=== PATIENT | female | born 1985 | race African-American/Black ===

== ENCOUNTER 2016-07-27 16:55 | Emergency (ER) | payer SELFPAY ==
[2016-07-27] MEDS ORDERED: ALBUTEROL SULFATE 0.083% NEB 2.5 MG/3 ML AMPUL NEB ONE (17:34)
--- NOTE | 2016-07-27 18:46 | ER Document Report ---
HPI - HPI Patient complains to provider of: cough Pain Level: Denies Context: 31-year-old female presented with department complaining of cough for 1 week. She admits that is productive, yellow/clear phlegm. Otherwise she denies any fever, chills, difficulty breathing, shortness of breath, nasal drainage, sinus pressure and congestion. Smokes half a pack a day - REPRODUCTIVE Reproductive: DENIES: : - DERM Skin Color: Normal Past Medical History - Social History Smoking Status: Current Every Day Smoker Family History: Reviewed & Not Pertinent Patient has suicidal ideation: No Patient has homicidal ideation: No Pulmonary Medical History: Reports: Hx Bronchitis Renal/ Medical History: Denies: Hx Peritoneal Dialysis - Immunizations Hx Diphtheria, Pertussis, Tetanus Vaccination: Yes Vertical Provider Document - CONSTITUTIONAL Agree With Documented VS: Yes Exam Limitations: No Limitations General Appearance: WD/WN, No Apparent Distress Notes: PHYSICAL EXAM GENERAL: Alert, interacts well. HEAD: Normocephalic, atraumatic. EYES: Pupils equal, round, and reactive to light. Extraocular movements intact. ENT: Oral mucosa moist, tongue midline. NECK: Full range of motion. Supple. Trachea midline. LUNGS: Clear to auscultation bilaterally, no wheezes, rales, or rhonchi. No respiratory distress. HEART: Regular rate and rhythm. No murmurs, gallops, or rubs. EXTREMITIES: Moves all 4 extremities spontaneously. No edema, radial and dorsalis pedis pulses 2/4 bilaterally. No cyanosis. NEUROLOGICAL: Alert and oriented x4. Normal speech. PSYCH: Normal affect, normal mood. SKIN: Warm, dry, normal turgor. No rashes or lesions noted. - INFECTION CONTROL TRAVEL OUTSIDE OF THE [place] IN LAST 30 DAYS: No - RESPIRATORY O2 Sat by Pulse Oximetry: 98 Course - Re-evaluation Re-evalutation: 07/27/16 19:41 Patient is a 31-year-old female daily stable, no acute distress and afebrile. No evidence of acute cardiopulmonary process noted on x-ray. Patient states that her cough feels better after albuterol treatment. We will discharge home and can follow-up with primary care as needed. Patient educated on quitting smoking - Vital Signs Vital signs: Temp Pulse Resp BP Pulse Ox 98.6 F 92 16 127/72 H 98 07/27/16 16:59 07/27/16 16:59 07/27/16 16:59 07/27/16 16:59 07/27/16 16:59 - Diagnostic Test Radiology reviewed: Image reviewed, Reports reviewed Discharge - Discharge Clinical Impression: Cough Condition: Good Disposition: HOME, SELF-CARE Instructions: Upper Respiratory Illness ([facility]) Prescriptions: Albuterol Sulfate [Proair HFA Inhalation Aerosol 8.5 gm MDI] 2 puff IH Q4H PRN # 1 mdi PRN Reason: Forms: Return to Work Referrals: EMMANUEL JAMES MD [Primary Care Provider] - Follow up as needed
[2016-07-27 18:57] VITALS: BP 117/71
== END 2016-07-27 18:55 | disposition home or self-care (01) ==
LOC: ER 16:55
DX: R05 Cough (principal); F17.200 Nicotine dependence, unspecified, uncomplicated
CPT/HCPCS: 71020; 94640; 99283

== ENCOUNTER 2016-09-06 19:15 | Emergency (ER) | payer SELFPAY ==
[2016-09-06 19:30] VITALS: BP 116/89
--- NOTE | 2016-09-06 20:22 | ER Document Report ---
ED Skin Rash/Insect Bite/Abscs - General Chief Complaint: Insect Bite Stated Complaint: POSSIBLE INSECT BITE Time Seen by Provider: 09/06/16 20:08 Mode of Arrival: Ambulatory Information source: Patient Notes: 31-year-old female presents to ED for pain to her right calf. She states she was bit by a horse bite yesterday and the swelling has continued to increase redness painful. Patient took a Benadryl yesterday with no relief. [place] know what a request by with do until she was bit in the hand but she took Benadryl one time and it went down this time it did not go straight down. She became concerned so she came to the emergency room. TRAVEL OUTSIDE OF THE [place] IN LAST 30 DAYS: No - HPI Patient complains to provider of: Insect bite Onset: Yesterday Onset/Duration: Gradual Quality of pain: Pressure Severity: Moderate Pain Level: 3 Skin Character: Erythema, Swelling, Other Quality of rash: Itchy, Painful Identify cause: Yes - Insect bite Exacerbated by: Denies Relieved by: Denies Similar symptoms previously: Yes Recently seen / treated by doctor: Yes - Related Data Allergies/Adverse Reactions: No Known Allergies Allergy (Verified 07/27/16 17:01) Past Medical History - General Information source: Patient - Social History Smoking Status: Current Every Day Smoker Cigarette use (# per day): Yes - Half a pack a day Chew tobacco use (# tins/day): No Smoking Education Provided: Yes - Less than 2 minutes Frequency of alcohol use: Social - 2 beer 3-4 times a week Drug Abuse: None Occupation: Restaurant Lives with: Spouse/Significant other Family History: CVA. denies: Arthritis, CAD, COPD, DM, Hyperlipidemia, Hypertension, Malignancy, Thyroid Disfunction Patient has suicidal ideation: No Patient has homicidal ideation: No - Past Medical History Cardiac Medical History: Reports: None Pulmonary Medical History: Reports: Hx Bronchitis EENT Medical History: Reports: None Neurological Medical History: Reports: None Endocrine Medical History: Reports: None Renal/ Medical History: Reports: None Malignancy Medical History: Reports: None GI Medical History: Reports: None Musculoskeltal Medical History: Reports None Skin Medical History: Reports Hx Eczema Psychiatric Medical History: Reports: Hx Depression Traumatic Medical History: Reports: None Infectious Medical History: Reports: None Past Surgical History: Reports: Hx Oral Surgery - [place] teeth - Immunizations Hx Diphtheria, Pertussis, Tetanus Vaccination: Yes Review of Systems - Review of Systems Constitutional: No symptoms reported EENT: No symptoms reported Cardiovascular: No symptoms reported Respiratory: No symptoms reported Gastrointestinal: No symptoms reported Genitourinary: No symptoms reported Female Genitourinary: No symptoms reported Musculoskeletal: No symptoms reported Skin: Other - Insect bite with redness and swelling to the right calf Hematologic/Lymphatic: No symptoms reported Neurological/Psychological: No symptoms reported -: Yes All other systems reviewed and negative Physical Exam - Vital signs Vitals: Temp Pulse Resp BP Pulse Ox 98.4 F 100 18 116/89 H 98 09/06/16 19:29 09/06/16 19:29 09/06/16 19:29 09/06/16 19:29 09/06/16 19:29 Interpretation: Normal - General General appearance: Appears well, Alert - HEENT Head: Normocephalic, Atraumatic Eyes: Normal Pupils: PERRL - Respiratory Respiratory status: No respiratory distress Chest status: Nontender Breath sounds: Normal Chest palpation: Normal - Cardiovascular Rhythm: Regular Heart sounds: Normal auscultation Murmur: No - Abdominal Inspection: Normal Distension: No distension Bowel sounds: Normal Tenderness: Nontender Organomegaly: No organomegaly - Back Back: Normal, Nontender - Extremities General upper extremity: Normal inspection, Nontender, Normal color, Normal ROM , Normal temperature General lower extremity: Normal color, Normal ROM, Normal temperature, Normal weight bearing. No: Brittaney's sign Calf: Other - Insect bite with redness and swelling to the right calf - Neurological Neuro grossly intact: Yes Cognition: Normal Orientation: AAOx4 Ross Coma Scale Eye Opening: Spontaneous Ross Coma Scale Verbal: Oriented [place] Coma Scale Motor: Obeys Commands Ross Coma Scale Total: 15 Speech: Normal Motor strength normal: LUE, RUE, LLE, RLE Sensory: Normal - Psychological Associated symptoms: Normal affect, Normal mood - Skin Skin Temperature: Warm Skin Moisture: Dry Skin Color: Normal Skin irregularity: Erythema Location of irregularity: Extremities - Right calf insect bite redness and swelling Irregularity with: Swelling Course - Vital Signs Vital signs: Temp Pulse Resp BP Pulse Ox 98.4 F 100 18 116/89 H 98 09/06/16 19:29 09/06/16 19:29 09/06/16 19:29 09/06/16 19:29 09/06/16 19:29 Discharge - Discharge Clinical Impression: Insect bite of lower leg with local reaction Qualifiers: Encounter type: initial encounter Laterality: right Qualified Code(s): S80.861A - Insect bite (nonvenomous), right lower leg, initial encounter Condition: Stable Disposition: HOME, SELF-CARE Instructions: Family Physicians / Practices Additional Instructions: Insect Bites You have been bitten by an insect. These bites can cause two types of swelling: an initial swelling due to insect saliva or injected poison, and a late reaction due to your body's allergic reaction. This initial local reaction may be uncomfortable but is not dangerous. Often there's an itchy "hive" at the bite location. This is treated with antihistamines, cold compresses, and resting the affected body part. The later reaction often develops about the second day. The entire area becomes very swollen, red, itchy, and tender. This is an allergic reaction. Your body is attacking the leftover insect saliva or venom. This type of allergy is unpleasant, but not dangerous. We treat this swelling with cortisone -type medicine. Sometimes we use antibiotics if we're worried about infection. Antihistamines help with the itch. If you develop a fever, chills, a red streak, or swollen glands in the area of the bite, infection may be starting. Return at once. Diphenhydramine The use of diphenhydramine (Benadryl) has been recommended to control allergic symptoms. The 25 mg strength is available over- the-counter, as well as the elixir. This antihistamine is used for many symptoms. It's useful for itching, watering eyes and nose, allergic swelling, hives, and insect stings. The medication can be repeated four times daily. Age Elixir (12.5 mg/tsp) 25 mg pill 1 yr 1/4 tsp 2-3 yr 1/2 tsp 4-8 yr 1 tsp 9-14 yr 2 tsp one tab adult 1-2 tabs Antihistamines may cause drowsiness, especially with the first dose. Do not operate machinery or drive while under the effects of the medication. Do not combine the medication with alcohol, or with any other medication without talking to your doctor. Ice Packs Apply ice packs frequently against the painful area. Many different schedules are recommended, such as "20 minutes on, 20 minutes off" or "one hour ice, two hours rest." If you need to work, you may need to go longer between ice treatments. You should plan to have the area ice packed AT LEAST one fourth of the time. The ice should be applied over the wrap, tape, or splint, or over a layer of cloth -- not directly against the skin. Some ice bags have a built-in cloth and can be put directly on the skin. FOLLOW-UP CARE: If you have been referred to a physician for follow-up care, call the physician s office for an appointment as you were instructed or within the next two days. If you experience worsening or a significant change in your symptoms, notify the physician immediately or return to the Emergency Department at any time for re-evaluation. Forms: Elevated Blood Pressure, Smoking Cessation Education, Return to Work
[2016-09-06] MEDS ORDERED: DIPHENHYDRAMINE HCL 50 MG CAPSULE PO ONE (20:26)
[2016-09-06] MEDS ORDERED: IBUPROFEN 800 MG TABLET PO ONE (20:26)
== END 2016-09-06 20:40 | disposition home or self-care (01) ==
LOC: ER 19:15
DX: S80.861A Insect bite (nonvenomous), right lower leg, initial encounter (principal); F17.210 Nicotine dependence, cigarettes, uncomplicated; Z71.6 Tobacco abuse counseling
CPT/HCPCS: 99281

== ENCOUNTER 2017-08-25 09:28 | Emergency (ER) | payer SELFPAY ==
[2017-08-25 09:34] VITALS: BP 130/88
--- NOTE | 2017-08-25 10:17 | ER Document Report ---
ED Skin Rash/Insect Bite/Abscs - General Mode of Arrival: Ambulatory Information source: Patient TRAVEL OUTSIDE OF THE [place] IN LAST 30 DAYS: No - General Chief Complaint: Skin Problem Stated Complaint: POSSIBLE BUG BITE Time Seen by Provider: 08/25/17 10:12 Notes: Patient is a 32-year-old female who presents to the emergency today with left elbow pain and swelling. Patient states she first noticed this area yesterday around noon. Patient states initially the area was very small in size however it has since spread to a large area over her left elbow. Patient states she feels like she was bitten by something however she did not see or feel anything bite her. Patient complains of slight pain with full flexion. Patient denies the area itching, fevers, or chills. (ROSALINA BARGER) - Related Data Allergies/Adverse Reactions: No Known Allergies Allergy (Verified 08/25/17 09:33) Past Medical History - General Information source: Patient - Social History Smoking Status: Current Every Day Smoker Cigarette use (# per day): Yes Chew tobacco use (# tins/day): No Frequency of alcohol use: Social Drug Abuse: None Lives with: Family Family History: CVA Patient has suicidal ideation: No Patient has homicidal ideation: No Pulmonary Medical History: Reports: Hx Bronchitis Skin Medical History: Reports Hx Eczema Psychiatric Medical History: Reports: Hx Depression Past Surgical History: Reports: Hx Oral Surgery - [place] teeth - Immunizations Hx Diphtheria, Pertussis, Tetanus Vaccination: Yes Review of Systems - Review of Systems Constitutional: denies: Chills, Fever EENT: No symptoms reported Cardiovascular: No symptoms reported Respiratory: No symptoms reported Gastrointestinal: No symptoms reported Genitourinary: No symptoms reported Female Genitourinary: No symptoms reported Musculoskeletal: See HPI, Joint pain - left elbow Skin: No symptoms reported Hematologic/Lymphatic: No symptoms reported Neurological/Psychological: No symptoms reported -: Yes All other systems reviewed and negative Physical Exam - Vital signs Vitals: Temp Pulse Resp BP Pulse Ox 99.1 F 93 12 130/88 H 100 08/25/17 09:33 08/25/17 09:33 08/25/17 09:33 08/25/17 09:33 08/25/17 09:33 - Notes Notes: PHYSICAL EXAM GENERAL: Alert, interacts well. No acute distress. HEAD: Normocephalic, atraumatic. EYES: Pupils equal, round, and reactive to light. Extraocular movements intact. ENT: Oral mucosa moist, tongue midline. NECK: Full range of motion. Supple. Trachea midline. LUNGS: No respiratory distress. HEART: Regular rate and rhythm. No murmurs, gallops, or rubs. Brisk capillary refill distally. ABDOMEN: Non-distended. EXTREMITIES: Moves all 4 extremities spontaneously. Able to fully flex and extend left elbow with slight pain at extreme flexion. See skin exam. NEUROLOGICAL: Alert and oriented x3. Normal speech. Sensation intact distally. PSYCH: Normal affect, normal mood. SKIN: Warm, dry, normal turgor. Large patch of erythema 10cm x 17cm just superior to the olecranon. Area is slightly indurated and hot to the touch without fluctuance. (ROSALINA BARGER) Course - Re-evaluation Re-evalutation: 08/25/17 10:17 Consistent with bug bite that then sparked cellulitis, no evidence of necrotizing fasciitis or abscess, no evidence of infection in the muscle. Treat with Keflex and discharged home. (JOHNSON SANDHU) - Vital Signs Vital signs: Temp Pulse Resp BP Pulse Ox 99.1 F 93 12 130/88 H 100 08/25/17 09:33 08/25/17 09:33 08/25/17 09:33 08/25/17 09:33 08/25/17 09:33 Discharge - Discharge Clinical Impression: Left arm cellulitis Condition: Stable Disposition: HOME, SELF-CARE Instructions: Cellulitis ([facility]) Prescriptions: Cephalexin Monohydrate [Keflex 500 mg Capsule] 1,000 mg PO BID 7 Days capsule Forms: Return to Work Referrals: EMMANUEL JAMES MD [ACTIVE STAFF] - Follow up in 3-5 days Scribe Attestation: 08/25/17 15:36 I personally performed the services described in the documentation, reviewed and edited the documentation which was dictated to the scribe in my presence, and it accurately records my words and actions. (JOHNSON SANDHU) Scribe Documentation - Scribe Written by Scribe:: Tee Cooper, 08/25/2017 1123 acting as scribe for :: Alysa
== END 2017-08-25 10:32 | disposition home or self-care (01) ==
LOC: ER 09:28
DX: L03.114 Cellulitis of left upper limb (principal); M25.522 Pain in left elbow; F17.210 Nicotine dependence, cigarettes, uncomplicated
CPT/HCPCS: 99283

== ENCOUNTER 2018-09-21 07:46 | Emergency (ER) | payer SELFPAY ==
[2018-09-21] MEDS ORDERED: IBUPROFEN 800 MG TABLET PO ONE (09:42)
[2018-09-21] MEDS ORDERED: CEPHALEXIN 500 MG CAPSULE PO ONE (09:42)
[2018-09-21] MEDS ORDERED: DIPHENHYDRAMINE HCL 50 MG CAPSULE PO ONE (09:42)
--- NOTE | 2018-09-21 09:48 | ER Document Report ---
HPI - HPI Patient complains to provider of: BL hand swelling Time Seen by Provider: 09/21/18 09:28 Pain Level: 3 Context: Patient is an otherwise healthy 37-year-old female presents the emergency department for bilateral hand swelling. Patient states around 1600 hrs. yesterday she got bit by 3 different horse flies. Patient states she saw the horse flies and felt them biting her. States initially her left hand was very swollen. States she took Benadryl last night, woke up this morning and now her right hand is also swollen. Patient states she did take Tylenol around 500am. Patient states she has had multiple insect bites recently and states last time she had an insect bite on her left elbow it "got really infected." Patient is concerned for infection which is why she presents to the emergency room. Patient denies any medical problems, denies any daily medications, denies any allergies, states she is up-to-date on her tetanus immunization. - REPRODUCTIVE Reproductive: DENIES: : Past Medical History - General Information source: Patient - Social History Smoking Status: Unknown if Ever Smoked Family History: CVA Pulmonary Medical History: Reports: Hx Bronchitis Renal/ Medical History: Denies: Hx Peritoneal Dialysis Skin Medical History: Reports Hx Eczema Psychiatric Medical History: Reports: Hx Depression Past Surgical History: Reports: Hx Oral Surgery - [place] teeth - Immunizations Hx Diphtheria, Pertussis, Tetanus Vaccination: Yes Vertical Provider Document - CONSTITUTIONAL Agree With Documented VS: Yes Notes: GENERAL: Alert, interacts well. No acute distress. HEAD: Normocephalic, atraumatic. EYES: Pupils equal, round, and reactive to light. Extraocular movements intact. ENT: Oral mucosa moist, tongue midline. NECK: Full range of motion. Supple. Trachea midline. LUNGS: Clear to auscultation bilaterally, no wheezes, rales, or rhonchi. No respiratory distress. HEART: Regular rate and rhythm. No murmur ABDOMEN: Soft, non-tender. Non-distended. Bowel sounds present in all 4 quadrants. EXTREMITIES: Moves all 4 extremities spontaneously. normal radial and dorsalis pedis pulses bilaterally. No cyanosis. Full range of motion bilateral wrists, full range of motion all 10 fingers despite swelling. BACK: no cervical, thoracic, lumbar midline tenderness. No saddle anesthesia, normal distal neurovascular exam. NEUROLOGICAL: Alert and oriented x3. Normal speech. cranial nerves II through XII grossly intact PSYCH: Normal affect, normal mood. SKIN: Warm, dry, normal turgor. Swelling noted to the posterior aspect of bilateral hands, multiple small scratches with 2 urticarial lesions noted medial posterior aspect right hand. - INFECTION CONTROL TRAVEL OUTSIDE OF THE [place] IN LAST 30 DAYS: No Course - Re-evaluation Re-evalutation: 09/21/18 09:46 Discussed with patient this is likely an allergen with a potential underlying bacterial infection. Discussed with patient need to take Benadryl every 6 hours and also take antibiotics as prescribed. Discussed close follow-up with primary care provider with close return precautions if in 48 hours the antibiotics and Benadryl have not helped with generalized swelling. Based on patient's physical exam with very slight erythema noted I will treat with Keflex. Patient stable for discharge At this time will discharge with return precautions and follow-up recommendations. Verbal discharge instructions given a the bedside and opportunity for questions given. Medication warnings reviewed. Patient is in agreement with this plan and has verbalized understanding of return precautions and the need for primary care follow-up in the next 24-72 hours. This medical record was dictated with voice recognizing software. There may be grammatical, syntax errors that are unintended. - Vital Signs Vital signs: Temp Pulse Resp BP Pulse Ox 98.0 F 93 16 129/86 H 98 09/21/18 07:50 09/21/18 07:50 09/21/18 07:50 09/21/18 07:50 09/21/18 07:50 Discharge - Discharge Clinical Impression: Allergic reaction Qualifiers: Encounter type: initial encounter Qualified Code(s): T78.40XA - Allergy, unspecified, initial encounter Cellulitis Qualifiers: Site of cellulitis: extremity Site of cellulitis of extremity: upper extremity Laterality: unspecified laterality Qualified Code(s): L03.119 - Cellulitis of unspecified part of limb Condition: Stable Disposition: HOME, SELF-CARE Instructions: Acute Allergic Reaction ([facility]), Cellulitis ([facility]) Additional Instructions: As we discussed you have been seen and treated in the emergency department for an allergic reaction with a potential underlying bacterial infection in bilateral hands. Please make sure taking Benadryl 50 mg every 6 hours for generalized swelling and also make sure you are taking antibiotics as prescribed. You can also take [id number] Tylenol or Motrin for generalized pain. Please follow-up with your primary care provider in the next 24 to 48 hours. Please return to the emergency room for any concerns Prescriptions: Cephalexin Monohydrate [Keflex 500 mg Capsule] 500 mg PO BID 7 Days #14 capsule Forms: Return to Work
[2018-09-21 10:01] VITALS: BP 122/80
== END 2018-09-21 10:01 | disposition home or self-care (01) ==
LOC: ER 07:46
DX: T78.40XA Allergy, unspecified, initial encounter (principal); L03.119 Cellulitis of unspecified part of limb; S60.562A Insect bite (nonvenomous) of left hand, initial encounter; W57.XXXA Bitten or stung by nonvenomous insect and other nonvenomous arthropods, initial encounter
CPT/HCPCS: 99283

== ENCOUNTER 2019-10-15 10:01 | Emergency (ER) | payer SELFPAY ==
[2019-10-15 10:08] VITALS: BP 135/86
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
== END 2019-10-15 10:30 | disposition home or self-care (01) ==
LOC: ER 10:01
DX: L03.116 Cellulitis of left lower limb (principal)
CPT/HCPCS: 99283